=== PATIENT | male | born 1970 | race Caucasian/White ===

== ENCOUNTER 2019-10-04 05:28 | Observation (INO) ==
[2019-10-04] MEDS ORDERED: Ondansetron 4 MG/2 ML VIAL IVP PRN ×2 (07:27→10:07)
[2019-10-04] MEDS ORDERED: Ketorolac 15 MG/ML VIAL IVP PRN ×2 (07:27→10:07)
[2019-10-04] MEDS ORDERED: *HR* OxyCODONE Immed Rel 5 MG TABLET PO PRN ×3 (07:27→10:07)
[2019-10-04] MEDS ORDERED: Naloxone 0.4 MG/ML INJ IVP PRN ×2 (07:27→10:07)
[2019-10-04] MEDS ORDERED: Ringers Solution, Lactated 1,000 ML IVC SCH ×2 (07:30→10:07)
[2019-10-04] MEDS ORDERED: *HR* FentaNYL (PF) 100 MCG/2 ML VIAL ONE (08:08)
[2019-10-04] MEDS ORDERED: *HR* Propofol 200 MG/20 ML VIAL IVP ONE (08:08)
[2019-10-04] MEDS ORDERED: *HR* Midazolam HCl 2 MG/2 ML VIAL ONE (08:08)
[2019-10-04 08:11] LABS: Red Cell Distribution Width 11.9 % (11.5-14.5)
[2019-10-04 08:13] LABS: Hematocrit 40.5 % (37.5-50.1); Hemoglobin 13.9 g/dL (12.9-16.9); Immature Platelets 1.4 % (1.1-6.1); Mean Corpuscular HGB Conc 34.3 g/dL (31.6-35.5); Mean Corpuscular Volume 90.4 fL (83.0-100.0); Mean Platelet Volume 8.6 fL (9.4-12.4); Red Blood Count 4.48 M/mcL (4.19-5.50); White Blood Count 7.2 K/mcL (4.3-11.1)
[2019-10-04] MEDS ORDERED: Ondansetron 4 MG/2 ML VIAL ONE (08:14)
[2019-10-04] MEDS ORDERED: Lidocaine -MPF 2% 2 ML VIAL ONE (08:14)
[2019-10-04] MEDS ORDERED: Dexamethasone 4 MG/ML VIAL ONE (08:14)
[2019-10-04 08:29] LABS: BUN/Creatinine Ratio 18 (6-26); Blood Urea Nitrogen 14 mg/dL (6-20); Calcium 8.7 mg/dL (8.6-10.3); Carbon Dioxide 25 mEq/L (23-29); Chloride 107 mEq/L (98-107); Glucose 99 mg/dL (70-105); Magnesium 2.2 mg/dL (1.6-2.6); Osmolality,Calculated 285 (280-300); Phosphorous 3.5 mg/dL (2.7-4.5); Sodium 137 mEq/L (136-145); eGFR For African Americans > 60 (> 60); eGFR For Non-African Americans > 60 (> 60)
[2019-10-04] MEDS ORDERED: Acetaminophen IV 1,000 MG/100 ML BAG ONE (08:34)
[2019-10-04] MEDS ORDERED: Famotidine 20 MG/2 ML VIAL ONE (08:34)
[2019-10-04] MEDS ORDERED: Isovue-300 150 ML INFUS..BTL ONE (08:35)
[2019-10-04] MEDS ORDERED: amLODIPine 5 MG TABLET PO SCH (11:15)
[2019-10-04 13:10] VITALS: BP 149/89
== END 2019-10-04 14:46 | disposition home or self-care (01) ==
LOC: 2NNU → SUATTDRO 06:37
PROVIDERS: ADMIT Internal Medicine; ATTEND Internal Medicine